=== PATIENT | male | born 1990 | race Caucasian/White ===

== ENCOUNTER 2019-12-02 16:51 | Emergency (ER) | payer MEDICAID, SELFPAY ==
[2019-12-02 16:52] VITALS: BP 122/98; PULSE 82; RESP 18; TEMP 36.1; O2SAT 98; BMI 20.9
--- NOTE | 2019-12-02 18:19 | ED.DCSUM_ITS ---
History of Present Illness Chief Complaint: Male Pain/Injury Detail of Chief Complaint: Right testicular pain Informant: Patient Onset: Month(s) - Approximately 2 months Context: Sudden Onset Timing: Intermittent Quality: Pain Location: Right testicle Current Severity: Mild Maximum Severity: Moderate Worsened by: Palpation Relieved by: Supine position Associated Symptoms: None Narrative: Patient is 29-year-old male who is not sexually active. He states he has not had intercourse in 6 years. He presents with right testicular pain that started approximate 2 months ago. He states his right testicle was descended in his abdomen. He felt the mass. He pushed it down. He states his testicle reappeared. He has had pain ever since. He denies dysuria, frequency, urgency or hematuria. He denies any penile lesions or urethral discharge. There is no history of trauma other than when he pushed his testicle from a descended position to normal position. Prior similar symptoms: No Recent Illness/Hospitalization: No - Past Medical History (1) No significant past medical history Status: Acute Past Medical History - Allergies and Home Meds Allergies/Adverse Reactions: Allergies No Known Allergies Allergy (Verified 12/02/19 16:55) Primary Care Physician: Mariel Florian MD [Primary Care Provider] - Prior records reviewed: No Past Medical History: None Surgical History: no surgical history Lives: Alone Smoking Status: Unknown if ever smoked Alcohol: None Drugs: None Review of Systems General: Denies: Chills, Fever, Malaise, Sweats Gastrointestinal: Denies: Abdominal pain, Nausea, Vomiting Genitourinary: Reports: - - Testicle pain as previously documented. Denies: Dysuria, Hematuria, Frequency Musculoskeletal: Denies: Myalgias, Arthralgias, Neck pain, Back pain, Swelling, Extremity Pain, -, - Skin: Denies: Rash, Wounds Allergy: Denies: Uticaria Physical Exam Vital Signs/Narrative: Vital Signs Temp Pulse Resp BP Pulse Ox 12/02/19 16:52 97 F L 82 18 122/98 H 98 Inital Vital Signs reviewed: Yes General: Well nourished, Well developed, No Acute Distress Head: Normocephalic, Atraumatic Eyes: Perrl, EOMI. Negative for: Pale conjunctiva, Scleral icterus ENT: Moist mucous membranes, No rhinorrhea Cardiovascular: Regular rate, Regular rhythm Respiratory: No distress Abdomen: Soft, Nontender, Nondistended, Normal bowel sounds, No masses. Negative for: Ventral hernia, Inguinal hernia Rectal: Deferred : - - Descended bilaterally. Positive cremasteric reflex bilaterally. Normal lie. There is no tenderness of the epididymis right or left. Right testicle is slightly larger than the left. There is no evidence of inguinal hernia. There is no defect appreciated. There is no penile lesion or discharge noted. He is circumcised. Back: Nontender, Normal Inspection Skin: Normal color, No rash, No Trauma. Negative for: Cyanosis, Diaphoresis, Jaundice Neurological: Alert, Oriented x3, Cranial nerves II-XII grossly intact, Normal Strength, Normal Sensation Psychological: Normal affect, Normal Mood Diagnostic/Tx/Re-eval Laboratory Results 12/02/19 18:49 Urine Color Yellow Urine Clarity Clear Urine pH 6.5 Ur Specific [place] 1.015 Urine Protein Negative Urine Glucose (UA) Normal Urine Ketones Negative Urine Occult Blood Negative Urine Nitrite Negative Urine Bilirubin Negative Urine Urobilinogen Normal Ur Leukocyte Esterase Negative Urine RBC 0 SEEN Urine WBC 0 SEEN Ur Squamous Epith Cells 0 SEEN Urine Bacteria 0 SEEN Urine Mucus 0 SEEN Patient and mother were informed the cause of his pain is unknown. - Medical Decision Making Patient may have a hydrocele. Will obtain UA. Since there is no history of sexual activity for 6 years no penile lesion or discharge urine for GC and chlamydia was not obtained. If UA is negative will treat with NSAID since there is no contraindication. ED Disposition - Plan for ED Patient: Disposition: Home or Assisted Living Diagnosis: Right testicular pain Instructions: ED Acute Pain [facility] Prescriptions: Naproxen [Naprosyn] 500 mg PO BID #14 tab Transmission Status: Pending to [id number] [facility] Referrals: Mariel Florian MD [Primary Care Provider] - Eugene Mcdonald MD [STAFF PHYSICIAN] - 3-5 Days if not improving
[2019-12-02 18:54] LABS: Bacteria 0 SEEN /hpf (None Seen); Mucous, Urine 0 SEEN /hpf (<or=2+); Red Blood Cells-Urine 0 SEEN /hpf (0-5); Squamous Epithelial Cells - UA 0 SEEN /hpf (0-5); White Blood Cells 0 SEEN /hpf (0-5)
[2019-12-02 18:57] LABS: Color, Urine Yellow (Yellow); Glucose, Dipstick Normal (Normal); Ketone-Dipstick Negative (Negative); Leukocyte Esterase-Dipstick Negative /ul (Negative); Nitrite-Dipstick Negative (Negative); Occult Blood-Urine Negative /ul (Negative); Protein-Dipstick Negative (Negative); Specific Gravity, Urine 1.015 (1.002-1.030); Urine Bilirubin Dipstick Negative (Negative); Urine Clarity Clear (Clear); Urine Urobilinogen Normal (Normal); Urine pH 6.5 (5.0 - 8.0)
[2019-12-02] MEDS: Naproxen 500 MG Tablet PO (19:13)
[2019-12-02 19:30] VITALS: RESP 14
== END 2019-12-02 19:31 | disposition home or self-care (01) ==
PROVIDERS: Emergency Provider Emergency Medicine
DX: N50.811 Right testicular pain (principal)
CPT/HCPCS: 81001; 99283; A4216

== ENCOUNTER 2022-02-02 19:18 | Emergency (ER) | payer MEDICAID, SELFPAY ==
[2022-02-02 19:18] VITALS: BP 133/89; PULSE 126; RESP 20; TEMP 36.6; O2SAT 100; BMI 20.9
--- NOTE | 2022-02-02 20:03 | EKG12_ITS ---
Test Reason : CP Blood Pressure : / mmHG Vent. Rate : 092 BPM Atrial Rate : 092 BPM P-R Int : 176 ms QRS Dur : 086 ms QT Int : 346 ms P-R-T Axes : 084 093 064 degrees QTc Int : 427 ms Normal sinus rhythm Biatrial enlargement Abnormal ECG Confirmed by FRANKLIN BOYD, BLAYNE ([id number]), clinical editor ROHAN HILLIARD ([id number]) on 02/05/2022 9:36:59 AM Referred By: BB Confirmed By:BLAYNE REID MD
--- NOTE | 2022-02-02 20:05 | ED.VIS.CHEST ---
HPI History of Present Illness Chief Complaint: Chest Pain Informant: patient Onset/Context/Timing Onset: Days (4) Activity at onset: gradual and onset Timing: Continuous Quality: Positive for Dull and - (sore) Location: Left Chest (at lower ant ribs) Current Severity: Moderate Maximum Severity: Moderate Worsened By: Movement of Torso, Palpation, Breathing and Coughing Relieved By: Nothing; Not Relieved By NSAIDS Associated Symptoms: Positive for Palpitations (Chronic unchanged random without other symptoms); Negative for Nausea, Vomiting, Diaphoresis, Dyspnea, Cough or Lightheadedness Narrative Narrative: Patient presenting with left-sided lower anterior chest pain without radiation. It is pleuritic and he can also manipulate the pain by leaning over making it worse, laying on the left side make it worse, pressing on certain areas making it worse. It is really just a 1 particular area that the patient points to in his lower anterior left rib cage. Not in his sternum. Not in the abdomen. He denies any dyspnea. No recent long travel, hospitalization, surgery, no recent immobilization at all. He denies any history of blood clots, no pain or swelling. He has had in the past however, mild mitral valve prolapse as well as frequent palpitations that do not bother him very much, those are unchanged in this, and they suggest that he had a pericardial effusion once, he did not have to have any procedures done for this he had his thyroid tested and it was normal. [facility] Medical History Mitral valve prolapse Home Medications NK 02/02/22 [History Last Taken Unknown] Allergy/AdvReac Type Severity Reaction Status Date / Time No Known Allergies Allergy Verified 12/02/19 16:55 Social History Smoking Status: Current every day smoker tobacco type: cigarettes ROS ROS ED Constitutional Constitutional ED: Denies chills or fever(s) Eyes Eyes: Denies change in vision or diplopia ENT ENT ED: Denies rhinorrhea or sore throat Cardiovascular Cardiovascular: Reports as per HPI and chest pain; Denies palpitations Respiratory/Chest Respiratory/Chest: Denies cough or dyspnea Gastrointestinal Gastrointestinal: Denies abdominal pain, diarrhea, nausea or vomiting Genitourinary Genitourinary ED: Denies dysuria or hematuria Musculoskeletal Musculoskeletal: Denies back pain or neck pain Integumentary Denies abscess or rash Neurologic Neurologic: Denies headache(s), paresthesias or weakness Psychiatric Psychiatric: Denies anxiety or suicidal thoughts EXAM Physical Exam Const Vital Signs: 02/02/22 19:18 02/02/22 19:49 Temperature 97.9 F Temperature Source Temporal Pulse Rate 126 H Respiratory Rate 20 H Respiratory Effort Normal Non-Labored Blood Pressure 133/89 H Blood Pressure Mean 103 Pulse Ox 100 Oxygen Delivery Method Room Air Positive well nourished and well developed General Appearance ED: well developed and NAD HEENT Reports moist mucous membranes normocephalic and atraumatic Eyes PERRL and EOMs intact bilaterally Neck full ROM and supple Chest Wall inspection of chest normal Chest Narrative: Reproducible tenderness left lower chest wall, well above the costal margin. No crepitance. No skin lesions. No step-off. Involves ribs and intercostal areas both. Resp normal respiratory effort and clear to auscultation bilaterally Resp Narrative: No splinting with deep inspiration Effort and Inspection: able to speak in complete sentences Cardio regular rate, regular rhythm and no murmurs Rate: Negative for tachycardic GI non-tender and non-distended Auscultation: normoactive bowel sounds Palpation: soft Back/Spine no CVA tenderness General Back: other FROM Extremity normal to inspection General Extremety ED: Negative for edema, pulses abnormal or tenderness General Extremity: Negative for edema or pulses abnormal Neuro oriented x3, CN's II-XII intact bilaterally and no sensory deficits noted Sensorium / Orientation: awake and alert Motor Exam: strength 5/5 throughout Skin no rashes or lesions noted and no wounds MDM MDM MDM Narrative Medical decision making narrative: Patient has a normal EKG. I do not think this is cardiac and actually think it is musculoskeletal. However given his history, I considered other possibilities including pneumothorax, pleurisy, PE. He came in with a pulse in triage at 126. His EKG the rate was 92, and while I was in the room his rate was in the 80s and 90s the entire time, sinus arrhythmia, normal for healthy 31-year-old. He meets the PERC criteria with a score of 0 except for his triage heart rate. For this reason I did a D-dimer. All of these tests were normal including two-view chest x-ray which on my interpretation is normal. There is no sign of cardiomegaly and I do not suspect a pericardial effusion given his symptoms and exam. He is given Toradol which may be helped a little, supportive care advised, I do think he needs any prescriptions. Lab Data Attestation: I reviewed the patient's lab results. Labs: Laboratory Results - last 24 hr 02/02/22 02/02/22 02/02/22 20:13 20:13 20:13 WBC 4.9 RBC 5.22 Hgb 15.9 Hct 47.7 MCV 91.4 MCH 30.5 MCHC 33.3 RDW Std Deviation 41.7 RDW Coeff of Cornelius 12.4 Plt Count 226 MPV 10.5 Immature Gran % (Auto) 0.400 Neut % (Auto) 50.3 Lymph % (Auto) 37.1 [place] % (Auto) 9.3 Eos % (Auto) 2.1 Baso % (Auto) 0.8 Absolute Neuts (auto) 2.4 Absolute Lymphs (auto) 1.80 Nucleated RBC % 0 D-Dimer Quant (PE/DVT) 0.28 Sodium 143 Potassium 3.6 Chloride 104 Carbon Dioxide 31.0 Anion Gap 8 BUN 19 H Creatinine 1.14 Estim Creat Clear Calc 91.18 Est GFR (MDRD) Af Amer 96 Est GFR (MDRD) Non-Af 80 BUN/Creatinine Ratio 16.7 Glucose 115 H Calcium 10.0 Troponin I High Sens 5 Radiography Diagnostic Testing: Clinical Impression(s) from Imaging Studies Chest X-Ray 02/02/22 20:15 IMPRESSION: Normal x-ray examination of the chest. Electronically Signed: Elfego Hall MD at 20:39 EDT , Rhythm Strip Rhythm Strip: Sinus Rhythm Rate: 88 Ectopy: None EKG Initial EKG: Attestation: I personally reviewed and interpreted this EKG as follows: Interpretation: Sinus Rhythm and No Acute Injury Pattern Comments: Normal EKG Discharge Plan Triage Chief Complaint: Chest Pain ED Provider: Joseph Peralta Dx/Rx/DC Orders Clinical Impression: Left-sided chest wall pain Instructions: ED Chest Wall Strain Prescriptions: No Action NK Primary Care Provider: Care Physician,No Primary Referrals: Rosalina Parker [Non-Staff] - 1 Week if not improving Care Physician,No Primary [Primary Care Provider] - Disposition Disposition: Home, Self Care
--- NOTE | 2022-02-02 20:15 | RAD_ITS ---
STUDY: X-RAY CHEST REASON FOR EXAM: Male, 31 years old. left chest pain TECHNIQUE: PA and lateral views of the chest. COMPARISON: None. FINDINGS: The lungs are clear and expanded. There is no demonstrated pleural abnormality. Normal size heart. Normal mediastinum and myriam. Normal visualized pulmonary arteries. Normal visualized aortic arch and descending thoracic aorta. Normal visualized thoracic spine. Normal visualized ribs, clavicles, and shoulders. There is no demonstrated abnormality of the visualized soft tissue structures of the upper abdomen. RAD/Chest PA and Lateral IMPRESSION: Normal x-ray examination of the chest. Electronically Signed: Elfego Hall MD at 20:39 EDT ,
[2022-02-02 20:19] LABS: Absolute Neutrophil Count 2.4 X10^3/uL (2.0-7.7); Basophil# 0.04 X10^3/uL; Basophil% 0.8 % (0-1); Eosinophils% 2.1 % (0-5); Hematocrit 47.7 % (40-54); Hemoglobin 15.9 g/dL (13.0-16.5); Lymphocyte % 37.1 % (19-41); Mean Corp Hgb Conc 33.3 g/dL (32-36); Mean Corpuscular Hgb 30.5 pg (27.0-32.0); Mean Corpuscular Volume 91.4 fL (80-94); Mean Platelet Vol. 10.5 fl (6.2-12.0); Monocyte# 0.45 X10^3/uL; Monocyte% 9.3 % (0-10); NRBC Flagged by Analyzer 0 % (0-5); Neutrophil # 2.44 X10^3/uL (2.7-7.7); Neutrophil % 50.3 % (47-70); Platelet Count 226 K/mm3 (150-450); RBC Distribution Width CV 12.4 % (11.6-14.6); RBC Distribution Width SD 41.7 fl (35.1-43.9); Red Blood Count 5.22 M/mm3 (4.6-6.2); White Blood Count 4.9 K/mm3 (4.4-11.0)
[2022-02-02] MEDS: Ketorolac 30 MG/ML Syringe IV (20:27)
[2022-02-02 20:31] LABS: D-Dimer Quantitative (DVT/PE) 0.28 FEU/ug/m (0.27-0.49)
--- NOTE | 2022-02-02 21:00 | CM.ED ---
SW Note SW went into room. Patient was out of the room. However, SW provided patient's significant other with [facility] HealthCare Directory and Where to go and when resources. No other issues or concerns voiced. SW remains available. Plan:Resources provided Angie VALENTIN
[2022-02-02 21:18] LABS: Anion Gap 8 (5-15); BUN 19 mg/dL (7-18); BUN/Creat Ratio 16.7 RATIO (10-20); Chloride 104 mmol/L (98-107); Creatinine, Serum 1.14 mg/dL (0.70-1.30); EST Glomerular Filtration Rate 80 mL/min (>60); Est Glom Filt Rate - Afr Amer 96 mL/min (>60); Estimated Creatinine Clearance 91.18 ml/min; Glucose 115 mg/dL (74-106); Potassium 3.6 mmol/L (3.5-5.1); Sodium Level 143 mmol/L (136-145); Troponin-I HS 5 pg/mL (3.0-78.0)
[2022-02-02 22:05] VITALS: BP 107/81; PULSE 73; RESP 18; O2SAT 95
== END 2022-02-02 22:06 | disposition home or self-care (01) ==
PROVIDERS: Emergency Provider Emergency Medicine; Visit Provider Emergency Medicine
DX: R07.89 Other chest pain (principal); R07.81 Pleurodynia; R00.2 Palpitations; F17.210 Nicotine dependence, cigarettes, uncomplicated
CPT/HCPCS: 71046; 80048; 84484; 85025; 85379; 93005; 96374; 99284; A4216

== ENCOUNTER 2023-02-09 15:59 | Emergency (ER) | payer MEDICAID, SELFPAY ==
[2023-02-09 16:01] VITALS: BP 120/86; PULSE 82; RESP 14; TEMP 36.4; O2SAT 100; BMI 20.9
--- NOTE | 2023-02-09 18:05 | EDS_ITS ---
HPI History of Present Illness Chief Complaint: Dental Informant: patient Narrative Narrative: Patient has history of chronic dental issues and states for the past 2 days his right mandibular molar has been really bothering him with some occasional bleeding and he is concerned about the look of the gingiva. Denies any swelling or fevers/chills. Having trouble getting into a dentist that will take his insurance. [facility] Medical History Asthma Mitral valve prolapse Home Medications clindamycin HCl 150 mg capsule 300 mg (2 x 150 mg) PO 4X/DAY #80 CAPSULES 02/09/23 [Rx Last Taken Unknown] tramadol 50 mg tablet 50 mg PO Q4H PRN PRN Pain 3 days #10 tabs 02/09/23 [Rx Last Taken Unknown] Allergy/AdvReac Type Severity Reaction Status Date / Time No Known Allergies Allergy Verified 02/09/23 16:01 Social History Smoking Status: Current every day smoker tobacco type: cigarettes and e- cigarettes ROS ROS ED Constitutional Constitutional ED: Denies chills or fever(s) Eyes Eyes: Denies change in vision or double vision ENT ENT ED: Reports dental pain; Denies sinus pain or throat swelling Cardiovascular Cardiovascular: Denies chest pain or palpitations Respiratory/Chest Respiratory/Chest: Denies cough or dyspnea Integumentary Denies abscess or rash Neurologic Neurologic: Denies headache(s), paresthesias or weakness EXAM Physical Exam Const Vital Signs: 02/09/23 16:01 Temperature 97.6 F L Temperature Source Temporal Pulse Rate 82 Respiratory Rate 14 Blood Pressure 120/86 H Blood Pressure Mean 97 Pulse Ox 100 Oxygen Delivery Method Room Air Positive well nourished and well developed General Appearance ED: well developed and NAD HEENT HEENT Narrative: Tooth #31 has what appears to be a chronic fracture, is mildly tender there is no purulent discharge or bleeding, the gingiva associated with this is hyperemic but without any bleeding or abscess or other discharge. There is no necrotic tissue. No trismus. No cervical lymphadenopathy or external facial asymmetry. Face and Sinus: sinuses nontender Throat: posterior oropharynx normal Eyes PERRL and EOMs intact bilaterally Neck no lymphadenopathy and supple Resp normal respiratory effort Neuro oriented x3 and CN's II-XII intact bilaterally Sensorium / Orientation: alert Gait (Neuro): normal gait Psych mental status grossly normal and thought process normal Skin no rashes or lesions noted and no wounds MDM MDM MDM Narrative Medical decision making narrative: Consistent with gingivitis we will treat him with clindamycin and give him something for pain. Given dental referral list. Nothing to drain at this time. No evidence of ANUG. Discharge Plan Triage Chief Complaint: Dental ED Provider: Joseph Peralta Dx/Rx/DC Orders Clinical Impression: Gingivitis, Dental decay Instructions: Understanding Gingivitis, ED Dental Pain Prescriptions: New clindamycin HCl 150 mg capsule 300 mg PO 4X/DAY Qty: 80 0RF tramadol 50 mg tablet 50 mg PO Q4H PRN PRN (Reason: Pain) 3 Days Qty: 10 0RF Primary Care Provider: Care Physician,No Primary Referrals: Dentist,Your [STAFF PHYSICIAN] - As soon as possible (See attached resource list if needed) Activity Restrictions/Additional Instructions: This antibiotic is easier to cause diarrhea or C. difficile, eat yogurt or probiotic every day while on the antibiotic tell prevent this. Disposition Disposition: Home, Self Care
[2023-02-09] MEDS: traMADol 50 MG Tablet PO (18:21)
[2023-02-09] MEDS: Clindamycin HCl 150 MG Capsule 300 MG PO (18:21)
== END 2023-02-09 18:25 | disposition home or self-care (01) ==
PROVIDERS: Emergency Provider Emergency Medicine; Visit Provider Emergency Medicine
DX: K05.10 Chronic gingivitis, plaque induced (principal); K02.9 Dental caries, unspecified; F17.210 Nicotine dependence, cigarettes, uncomplicated; J45.909 Unspecified asthma, uncomplicated; F17.290 Nicotine dependence, other tobacco product, uncomplicated
CPT/HCPCS: 99283

== ENCOUNTER 2023-10-01 16:27 | Emergency (ER) | payer MEDICAID, SELFPAY ==
[2023-10-01 16:30] VITALS: BP 143/97; PULSE 112; RESP 18; TEMP 37.2; O2SAT 99; BMI 20.2
--- NOTE | 2023-10-01 16:42 | EX.ED.GENINJ ---
HPI History of Present Illness Chief Complaint: Other, Pain/Inj PFSH PFSH Medical History (Updated 10/01/23 @ 19:[address] Sadi Mason, DO) Anxiety Heart palpitations Asthma Mitral valve prolapse Home Medications ?Medication ?Instructions ?Recorded ?Last Taken ?Type clindamycin HCl 150 mg capsule 300 mg (2 x 150 mg) PO 4X/DAY #80 02/09/23 Unknown Rx CAPSULES tramadol 50 mg tablet 50 mg PO Q4H PRN PRN Pain 3 days 02/09/23 Unknown Rx #10 tabs Allergy/AdvReac Type Severity Reaction Status Date / Time No Known Allergies Allergy Verified 02/09/23 16:01 Social History (Updated 10/01/23 @ 16:37 by Kristen Quintana) household members: family housing: house Smoking Status: Current every day smoker tobacco type: e-cigarettes EXAM Physical Exam Const Vital Signs: 10/01/23 16:30 10/01/23 16:37 10/01/23 18:30 Temperature 98.9 F Temperature Source Temporal Pulse Rate 112 H 88 Respiratory Rate 18 21 H Respiratory Effort Normal Non-Labored Short of Breath Respiratory Pattern Normal Blood Pressure 143/97 H 117/84 H Blood Pressure Mean 112 95 Pulse Ox 99 96 Oxygen Delivery Method Room Air Room Air 10/01/23 19:28 Temperature 96.3 F L Temperature Source Pulse Rate 100 Respiratory Rate 22 H Respiratory Effort Respiratory Pattern Blood Pressure 113/82 H Blood Pressure Mean 92 Pulse Ox 98 Oxygen Delivery Method [facility] MDM Narrative Medical decision making narrative: HISTORY OF PRESENT ILLNESS: 33-year-old male presents with concern for tremors. Notes he feels lightheaded and dizzy. States this began just prior to arrival. Notes history of similar. Denies any head trauma or headache. Denies any focal numbness weakness or loss sensation. REVIEW OF SYSTEMS: Pertinent positives: Spasms, tremors Pertinent negatives: Headache, neck pain, PHYSICAL EXAM: Nursing triage notes reviewed, Vital signs reviewed Constitutional: please see mdm HENT: MMM Eyes: Pupils equal round and reactive to light, Extraocular muscles intact Neck: No stridor, no JVD, full neck ROM Lungs: Clear to auscultation, No wheezing or rales. No increased work of breathing, no conversational dyspnea, no accessory muscle use, no nasal flaring. No respiratory distress noted Heart: Regular rate and rhythm, No murmurs, No rubs and No gallops, 2+ distal pulses (radial, femoral, posterior tibial) in all extremities Abdomen: Soft, there is no tenderness, rigidity, rebound or guarding, no obvious peritoneal signs, no palpable pulsatile abdominal masses, no auscultated abdominal bruit : No CVAT Extremities: No edema Neuro: Alert and oriented x3, neuro exam at baseline, cranial nerves II through XII are intact. No pain with extraocular muscle movement. There is negative test of skew. 5 of 5 strength in upper and lower extremities in flexion extension. Intact sensation to light touch in upper and lower extremity dermatomes. No truncal or extremity ataxia. No dysdiadochokinesia. Normal gait. 2+ reflexes in upper and lower extremities. No meningeal signs. Negative Babinski. NIH of 0. Skin: No rash or lesions noted MEDICAL DECISION MAKING: Chief Complaint: Tremors, lightheaded and dizzy External records reviewed: X-ray of 2021 shows no abnormalities Factors affecting care: none Social determinants of health: Denies illicit drugs History obtained from others: none Consults: none [facility] Narrative: The patient was hemodynamically stable, afebrile and nontoxic-appearing. Exam without focal neurologic deficits. I considered the following differential diagnosis: Electrolyte disturbance, muscle breakdown, ICH ALL IMAGES (IF OBTAINED) HAVE BEEN PERSONALLY REVIEWED AND INTERPRETED BY MYSELF. CT head negative for ICH or other intracranial normality CPK within normal limits making rhabdomyolysis less likely CBC without leukocytosis, severe anemia, no thrombocytopenia. BMP with mild hypokalemia (replace with 40 mEq of p.o. potassium), otherwise no other significant electrolyte abnormalities with mild renal insufficiency There is no clear life-limiting etiology to explain the patient's symptoms. Potassium was replaced. Noted complete resolution of symptoms after Benadryl and Ativan is appropriate discharge home. The patient and/or family, caregivers express understanding. The patient and/or family, caregivers agrees with the plan. Shared decision making: I will have a discussion with the patient and or visitors regarding risk/benefits of further testing or admission. They will be made aware of of the risk/benefits inherent in this decision they will be given the opportunity to voice understanding. Total critical care time today provided was at least 0 minutes. This excludes separately billable procedures. Critical care time (if documented) is secondary to the patient having high probability of clinically significant/life threatening deterioration in the patient's condition which required my urgent intervention. Impression: 1. Tremor 2. Hypokalemia Dispo: discharge This note was generated with [employer] dictation software. It may contain incorrect words, spelling, and punctuation that were not noted in review of the chart prior to signing. Lab Data Labs: Laboratory Results - last 24 hr 10/01/23 17:15 WBC 9.6 RBC 4.83 Hgb 14.4 Hct 42.2 MCV 87.4 MCH 29.8 MCHC 34.1 RDW Std Deviation 39.6 RDW Coeff of Cornelius 12.5 Plt Count 225 MPV 11.2 Immature Gran % (Auto) 0.300 Neut % (Auto) 64.0 Lymph % (Auto) 23.1 [place] % (Auto) 11.2 H Eos % (Auto) 0.8 Baso % (Auto) 0.6 Absolute Neuts (auto) 6.1 Absolute Lymphs (auto) 2.21 Nucleated RBC % 0 Sodium 137 Potassium 3.2 L Chloride 104 Carbon Dioxide 21.0 Anion Gap 12 BUN 17 Creatinine 1.36 H Estim Creat Clear Calc 74.78 Est GFR (MDRD) Af Amer 78 Est GFR (MDRD) Non-Af 64 BUN/Creatinine Ratio 12.5 Glucose 80 Calcium 10.0 Total Creatine Kinase 286 Radiography Diagnostic Testing: Clinical Impression(s) from Imaging Studies Brain CT 10/01/23 17:24 IMPRESSION: Negative head/brain CT without intravenous contrast. Electronically Signed: Jomar Barriga MD at 18:05 EDT , Discharge Plan Triage Chief Complaint: Other, Pain/Inj ED Provider: Sadi Mason Dx/Rx/DC Orders Clinical Impression: Muscle spasm Instructions: ED Muscle Spasm Prescriptions: No Action clindamycin HCl 150 mg capsule 300 mg PO 4X/DAY Qty: 80 0RF tramadol 50 mg tablet 50 mg PO Q4H PRN PRN (Reason: Pain) 3 Days Qty: 10 0RF Stand Alone Forms: ED Work / School Excuse Primary Care Provider: Juliana Swift Referrals: Jac Herring MD [Med Staff - Active Staff] - Activity Restrictions/Additional Instructions: Thank you for trusting us with your care today! Please take Tylenol (2 pills, 650 mg), ibuprofen (2 pills, 400 mg) every 6 hours as needed for pain and fever control. Please take Benadryl daily for additional symptomatic control. Please return to the emergency department if your symptoms change or worsen. Please follow with your primary care physician for further outpatient evaluation and management. Print Language: Lithuanian Disposition Disposition: Home, Self Care Discharge Date/Time: 10/01/23 19:36
--- NOTE | 2023-10-01 17:24 | CT_ITS ---
EXAM: CT HEAD WITHOUT INTRAVENOUS CONTRAST CLINICAL INDICATION: tremor, ROSSI TECHNIQUE: Multiple axial images were obtained of the head without intravenous contrast. This CT exam was performed using one or more of the following dose reduction techniques: automated exposure control, adjustment of the mA and/or kV according to patient size, and/or use of iterative reconstruction technique. COMPARISON: No relevant prior studies available. FINDINGS: BRAIN AND EXTRA-AXIAL SPACES: Unremarkable. No intra- or extra-axial hemorrhage. No evidence of acute infarct. No intracranial mass or mass effect. There is preservation of the morrow/white matter interface. Posterior fossa structures are unremarkable. Ventricles are appropriate for age. No hydrocephalus. Basal cisterns are patent. BONES/JOINTS: Unremarkable. No discrete lytic or blastic abnormalities. SINUSES: Unremarkable as visualized. Clear. MASTOID AIR CELLS: Unremarkable. Clear. ORBITS: Visualized globes, extraocular muscles, optic nerves and retrobulbar fat appear unremarkable. CT/Brain/Head without Contrast IMPRESSION: Negative head/brain CT without intravenous contrast. Electronically Signed: Jomar Barriga MD at 18:05 EDT ,
[2023-10-01 17:40] LABS: Absolute Lymphocyte Count 2.21 X10^3/uL (0.83-4.51); Absolute Neutrophil Count 6.1 X10^3/uL (2.0-7.7); Basophil# 0.06 X10^3/uL; Basophil% 0.6 % (0-1); Eosinophil# 0.08 X10^3/uL; Eosinophils% 0.8 % (0-5); Hematocrit 42.2 % (40-54); Hemoglobin 14.4 g/dL (13.0-16.5); Lymphocyte # 2.21 X10^3/ul (0.83-4.51); Lymphocyte % 23.1 % (19-41); Mean Corp Hgb Conc 34.1 g/dL (32-36); Mean Corpuscular Hgb 29.8 pg (27.0-32.0); Mean Corpuscular Volume 87.4 fL (80-94); Mean Platelet Vol. 11.2 fl (6.2-12.0); Monocyte# 1.07 X10^3/uL; Monocyte% 11.2 % (0-10); NRBC Flagged by Analyzer 0 % (0-5); Platelet Count 225 K/mm3 (150-450); RBC Distribution Width CV 12.5 % (11.6-14.6); RBC Distribution Width SD 39.6 fl (35.1-43.9); Red Blood Count 4.83 M/mm3 (4.6-6.2); White Blood Count 9.6 K/mm3 (4.4-11.0)
[2023-10-01] MEDS: DiphenhydrAMINE 50 MG/ML Syringe 25 MG IV (17:41)
[2023-10-01] MEDS: LORazepam 2 MG/ML Syringe 1 MG IV (17:41)
[2023-10-01] MEDS: 0.9% Normal Saline (500mL Bag) 500 ML 999 ML IV (17:41)
[2023-10-01 17:51] LABS: Anion Gap 12 (5-15); BUN 17 mg/dL (7-18); BUN/Creat Ratio 12.5 RATIO (10-20); CPK Total, Creatine Kinase 286 U/L (39-308); Chloride 104 mmol/L (98-107); Creatinine, Serum 1.36 mg/dL (0.70-1.30); EST Glomerular Filtration Rate 64 mL/min (>60); Est Glom Filt Rate - Afr Amer 78 mL/min (>60); Estimated Creatinine Clearance 74.78 ml/min; Glucose 80 mg/dL (74-106); Potassium 3.2 mmol/L (3.5-5.1); Sodium Level 137 mmol/L (136-145)
[2023-10-01 18:30] VITALS: BP 117/84; PULSE 88; RESP 21; O2SAT 96
[2023-10-01] MEDS: Potassium Chloride Oral Tablet 20 MEQ 40 MEQ PO (19:09)
[2023-10-01 19:28] VITALS: BP 113/82; PULSE 100; RESP 22; TEMP 35.7; O2SAT 98
== END 2023-10-01 19:36 | disposition home or self-care (01) ==
PROVIDERS: Emergency Provider Emergency Medicine; PCP Family Medicine; Visit Provider Emergency Medicine
DX: M62.838 Other muscle spasm (principal); E87.6 Hypokalemia; F17.290 Nicotine dependence, other tobacco product, uncomplicated; R42 Dizziness and giddiness; R25.1 Tremor, unspecified; J45.909 Unspecified asthma, uncomplicated
CPT/HCPCS: 70450; 80048; 82550; 85025; 96361; 96374; 96375; 99282; J7040

== ENCOUNTER → 2024-01-08 | Outpatient (CLI) | payer MEDICAID, SELFPAY ==
--- NOTE | 2024-01-08 15:43 | RAD_ITS ---
STUDY: X-RAY - LUMBAR SPINE REASON FOR EXAM: Male, 33 years old. pain TECHNIQUE: 2 view(s) of the lumbar spine were obtained. COMPARISON: None FINDINGS: Normal lumbar lordosis. There is no substantial scoliosis. There is a normal alignment of the vertebrae. Normal vertebral bodies and endplates. Normal disc space heights. 6 lumbar type vertebral bodies. The soft tissue structures are unremarkable. RAD/Lumbar Spine 2 or 3 Views IMPRESSION: No acute disease Electronically Signed: Michael Amador MD at 16:41 EDT ,
== END | disposition home or self-care (01) ==
LOC: MTRAD 15:43
PROVIDERS: PCP Family Medicine; Referring Provider Physician Assistant; Visit Provider Physician Assistant
DX: M54.50 Low back pain, unspecified (principal)
CPT/HCPCS: 72100

== ENCOUNTER 2024-02-27 12:00 | Outpatient (RCR) | payer OTHER, MEDICAID, SELFPAY ==
--- NOTE | 2024-01-24 15:32 | HP.PTEVAL_ITS ---
Patient's Visit Information Visit Information Visit Information: MISA BAÑUELOS is a 33 year old M referred to Physical Therapy by MELL Jennings with a diagnosis of LB strain. Date of Evaluation: 01/24/24 Physical Therapist: Ney Newman, PT, ATC Visit Plan Frequency: 2-3x /Week Duration: 4 Weeks Plan: REIL, postural edu, core stab ex's, L LE strengthening, and HEP Subjective Subjective: Pt reports date of injury is 01/08/24 while at work. 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 Pt reports laying supine, icing, and using a hot pack helps to decrease his pain. Pt reports standing for long periods of time on concrete, lifting heavy objects, sitting, and going up/down stairs; going up causes more pain than going down. Pt reports no numbness or tingling but does have a lot of pain going into both hips. Pt reports when the pain is at it's worst it's more difficult to put weight through his L leg. Pt reports 5-6/10 sitting at rest and is 8-9/10 at its worst. Pt reports he has trouble sleeping due to pain. X-ray/MRI didn't show any significant findings. Pain LBP: Pain Intensity (Out of 10): 5 Pain Intensity Range: 9 Objective Objective: Neuro: B LE sensation is WNL to light touch. B patellar reflex= 2/3 MMT: L LE is grossly 4-/5 throughout. R LE is 5/5 throughout ROM: Pt is minimally limited with flex. Moderately limited with extension and L SB, and WNL R SB Repeated movements: RFIS 10x1 worse, KODAK 10x1 worse. REIL better. Prone prop 1 min x 2 Balance/Special Test Scores Oswestry Low Back Score: 22 Goals Goal 1:: Decrease LBP x 50% to aid with sleep Goal Time Frame: 2-4 Weeks Goal 2:: Increase L/S ext ROM x 1 grade to aid with improving posture Goal Time Frame: 2-4 Weeks Goal 3:: Increase L LE strength to equal R LE strength to aid with return to work Goal Time Frame: 2-4 Weeks Goal 4:: I with HEP Goal Time Frame: 2-4 Weeks Rehabilitation Potential Physical Therapy Diagnosis: Pt has LBP, limited L/S ROM, and L LE weakness secondary to L/S disc derangement Rehabilitation Potential: Good Anticipated Interventions Patient/Client Instruction: Educate patient on: Condition and Plan of Care For the Purpose of:: To improve self management Therapeutic Exercise to Include: Strength training, Endurance training, Body mechanics, Postural training, Dynamic Lumbar Stabilization and Emily Exercises For the Purpose of:: To decrease pain, To increase ROM and To improve muscle performance and motor function Cryotherapy (ice pack, ice massage): Yes For the Purpose of:: To decrease pain Text: Thank you for the opportunity to evaluate your patient. For Medicare and Medicare HMO plans, please review the plan of care and approve it. It will need to be FAXED BACK to us at [phone] for Medicare purposes. For Medicare only, by signing this I certify the plan of care. Please let me know if there are questions or concerns regarding this plan of care. Physician Signature:__ Date:
--- NOTE | 2024-02-27 12:41 | HP.PTDCSUM ---
Discharge Summary D/C summary: It has been my pleasure to treat MISA BAÑUELOS referred by MELL Jennings, with the diagnosis of LB strain for a total of 10 visit(s). Discharge Date: Please see the following information for a summary of their discharge status. Subjective Subjective: Pt reports he is feeling much better now Pain LBP: Pain Intensity (Out of 10): 1 Overall Improvement % Improvement: 90 Objective Objective/Function: LBP is 1/10 L/S extension ROM is WNL Pt is I with HEP L LE MMT 5/5 throughout Rx goals achieved Goals Goal 1:: Decrease LBP x 50% to aid with sleep Goal Progress: Goal Met Goal 2:: Increase L/S ext ROM x 1 grade to aid with improving posture Goal Progress: Goal Met Goal 3:: Increase L LE strength to equal R LE strength to aid with return to work Goal Progress: Goal Met Goal 4:: I with HEP Goal Progress: Goal Met Plan Plan: Discharge to HEP D/C Information d/c sentence: If there are questions or concerns regarding this patient's physical therapy, please feel free to call me at [phone]. Thank you for the referral of this patient. Sincerely, Ney Newman, PT, ATC Balance/Gait/Functional tests Balance/Special Test Scores Oswestry Low Back Score: 0 Improvement % Improvement: 90
== END 2024-02-27 19:00 | disposition home or self-care (01) ==
LOC: PT 12:00
PROVIDERS: PCP Family Medicine; Referring Provider Physician Assistant; Visit Provider Physician Assistant
DX: S39.012D Strain of muscle, fascia and tendon of lower back, subsequent encounter (principal)
CPT/HCPCS: 97110; 97161; 97530